=== PATIENT | female | born 1970 | race Caucasian/White ===

== ENCOUNTER 2022-09-23 21:22 | Observation (INO) | payer BC, SELFPAY ==
[2022-09-23 21:43] VITALS: BP 116/78; PULSE 65; RESP 18; TEMP 36.4; O2SAT 99; BMI 24.3
--- NOTE | 2022-09-23 22:39 | ED.ABDPAIN1 ---
HPI - Abdominal Pain General Chief Complaint: Abdominal Pain Stated Complaint: FLANK PAIN Time Seen by Provider: 09/23/22 22:39 History of Present Illness HPI narrative: Patient presents to emergency department complaining of right upper quadrant pain that started yesterday. Patient denies any trauma. She states she started having right upper quadrant pain and later she was nauseated as if she had the flu. She has vomited 4 times since this started. Denies any hematemesis, melena, hematochezia. She states she had chills denies any fever. She took Motrin today at around 7 PM but still has not helped the pain. She denies any chest pain, shortness of breath. She denies any rashes. She denies any hematuria, dysuria. Patient has not had any previous surgeries to her abdomen. Related Data Home Medications Medication Instructions Recorded Confirmed No Known Home Medications 09/23/22 09/23/22 Allergies Allergy/AdvReac Type Severity Reaction Status Date / Time bee venom protein (honey bee) Allergy Unknown Verified 09/23/22 21:46 naproxen Allergy Unknown Verified 09/23/22 21:46 Penicillins Allergy Unknown Verified 09/23/22 21:46 mushrooms Allergy Unknown Uncoded 09/23/22 21:46 Review of Systems ROS Status of ROS 10 or more systems reviewed and unremarkable except as noted in history and below [facility] Social History Smoking status: Current every day smoker Exam Narrative Exam Narrative: Nurses notes and vital signs reviewed and patient is not hypoxic. General: Nontoxic, Appears in pain, butin no apparent distress. Skin: Warm, dry, no pallor noted. No Rash Head: Normocephalic, atraumatic. Neck: Supple, non-tender. Eye: Pupils are equal, round and EOMI. No scleral icterus. Ears, Nose, Mouth, and Throat: TM clear, no posterior oropharynx erythema or nasal mucosal hypertrophy, uvula is mid-line Oral mucosa is moist Cardiovascular: Regular Rate and Rhythm without murmur, gallop or rub. Respiratory: No accessory muscle use or respiratory distress. Lungs are clear to auscultation, no wheezing, rales or rhonchi Chest Wall: no tenderness Back: No midline thoracic or lumbar vertebral tenderness. No CVA tenderness Musculoskeletal: normal ROM, no calf or popliteal tenderness, no lower extremity edema/swelling GI: Abdomen is soft, non-distended. Normal bowel sounds. moderate RUQ tenderness to palpation. No rebound, guarding, or rigidity noted. Neurological: A&O x4. No cranial nerve dysfunction observed. No truncal ataxia. Moves all extremities. Sensation intact. Psychiatric: Cooperative and interactive. Normal mood and affect. Constitutional Vital Signs, click to edit/add: Last Vital Signs Temp 97.6 F 09/23/22 21:43 Pulse 65 09/23/22 21:43 Resp 18 09/23/22 21:43 BP 116/78 09/23/22 21:43 Pulse Ox 99 09/23/22 21:43 Course Vital Signs Vital signs: Vital Signs Temperature 97.6 F 09/23/22 21:43 Pulse Rate 65 09/23/22 21:43 Respiratory Rate 18 09/23/22 21:43 Blood Pressure 116/78 09/23/22 21:43 Pulse Oximetry 99 09/23/22 21:43 Temperature 97.6 F 09/23/22 21:43 Pulse Rate 65 09/23/22 21:43 Respiratory Rate 18 09/23/22 21:43 Blood Pressure 116/78 09/23/22 21:43 Pulse Oximetry 99 09/23/22 21:43 MDM - Abdominal Pain MDM Narrative Medical decision making narrative: Shouldn't was given 4 mg of morphine, and 4 mg of Zofran IV. 1 L of normal saline. Lab studies were done and her liver function tests are elevated. CT scan abdomen and pelvis shows acute cholecystitis. The patient was started on Cipro, and Flagyl as she is ALLERGIC to penicillin. Discussed with Dr. Cochran will admit the patient to his service. He advised to order a HIDA scan in the morning. Lab Data Attestation: I reviewed the patient's lab results. Labs: Lab Results 09/23/22 Range/Units 22:38 WBC 6.3 (4.0-11.0) 10^3/uL RBC 4.11 L (4.20-5.40) 10^6/uL Hgb 12.3 (12.0-16.0) g/dL Hct 36.7 (36.0-48.0) % MCV 89.3 (81.0-99.0) fL MCH 29.9 (26.7-34.0) pg MCHC 33.5 (29.9-35.2) g/dL RDW 14.1 (11.0-15.0) % Plt Count 241 (150-450) 10^3/uL MPV 9.6 (9.5-13.5) fL Neut % (Auto) 62.7 (43.0-75.0) % Lymph % (Auto) 25.2 (20.5-60.0) % [place] % (Auto) 9.2 (1.7-12.0) % Eos % (Auto) 1.6 (0.9-7.0) % Baso % (Auto) 1.1 (0.2-2.0) % Neut # (Auto) 4.0 (1.4-6.5) 10^3/uL Lymph # (Auto) 1.6 (1.2-3.8) 10^3/uL [place] # (Auto) 0.6 (0.3-0.8) 10^3/uL Eos # (Auto) 0.1 (0.0-0.7) 10^3/uL Baso # (Auto) 0.1 (0.0-0.1) 10^3/uL Abs Immat Gran (auto) 0.01 (0.00-0.03) 10^3/uL Imm/Tot Granulo (auto) 0.2 (0.0-0.5) % Sodium 139 (136-145) mmol/L Potassium 3.3 L (3.5-5.1) mmol/L Chloride 102 (98-107) mmol/L Carbon Dioxide 27.8 (21.0-32.0) mmol/L Anion Gap 12.5 BUN 12.0 (7.0-18.0) mg/dL Creatinine 0.72 (0.55-1.02) mg/dL Est GFR ( Amer) >60 (>=60) Est GFR (Non-Af Amer) >60 (>=60) BUN/Creatinine Ratio 16.7 Glucose 118 H (74-106) mg/dL Lactate 0.7 (0.4-2.0) mmol/L Calcium 8.3 L (8.5-10.1) mg/dL Total Bilirubin 2.4 H (0.2-1.0) mg/dL AST 867 H* (15-37) U/L ALT 999 H* (14-59) U/L Alkaline Phosphatase 197 H (46-116) U/L Total Protein 7.1 (6.4-8.2) g/dL Albumin 3.8 (3.4-5.0) g/dL Globulin 3.3 g/dL Albumin/Globulin Ratio 1.2 Lipase 90.0 (73.0-393.0) U/L Discharge Plan Discharge Chief Complaint: Abdominal Pain Clinical Impression: Acute cholecystitis Patient Disposition: Admitted as Observation Time of Disposition Decision: 00:53 Condition: Good
--- NOTE | 2022-09-23 23:12 | CT_ITS ---
The [facility] [address], [place] [address] Patient Name: MINGO BARRETO MRN: [id number] date: 1970 Sex: F Assigned Patient Location: ER Current Patient Location: ER Accession/Order Number: [id number] Exam Date: 09/23/2022 00:00 Report Date: 09/24/2022 00:39 At the request of: LUCIANO GIBBS Procedure: CT abdomen pelvis w con EXAM: CT abdomen pelvis w con HISTORY: Acute abdominal pain with nausea vomiting. Right lower rib pain. COMPARISON: None available TECHNIQUE: Multiple axial views CT abdomen pelvis after administration of 100 mL of opaque 300 IV contrast. Coronal sagittal reformats. FINDINGS: Visualized lung bases and cardiac apex are unremarkable. Small hiatal hernia. Hydropic gallbladder containing multiple gallstones. Pericholecystic fluid with periportal edema. Liver, pancreas, spleen, adrenal glands, kidneys, urinary bladder, and appendix are unremarkable. A 6 mm right superior renal cortical cyst. A 1.7 cm right ovarian rim-enhancing luteal cyst. Mild pelvic free fluid, likely physiologic. Uterus and other pelvic structures are otherwise unremarkable by CT exam. Scattered colonic diverticula without pericolonic inflammatory stranding. Moderate amount of stool within the right large bowel. No evidence for small bowel obstruction, large ascites, or free air. Small fat-containing umbilical hernia without bowel protrusion. No acute bony abnormality. CT/CT abdomen pelvis w con IMPRESSION: Hydropic gallbladder containing multiple gallstones. Pericholecystic fluid with periportal edema. Constellation of these findings raise the concern for acute cholecystitis. Close clinical attention recommended. Scattered colonic diverticula without pericolonic inflammatory stranding. Small hiatal hernia. Electronically authenticated by: EDGARDO CORBIN Date: 09/24/2022 00:39
[2022-09-23 23:22] LABS: Basophils Absolute Auto 0.1 10^3/uL (0.0-0.1); Basophils Percent Auto 1.1 % (0.2-2.0); Eosinophils Absolute Auto 0.1 10^3/uL (0.0-0.7); Eosinophils Percent Auto 1.6 % (0.9-7.0); Hematocrit 36.7 % (36.0-48.0); Hemoglobin 12.3 g/dL (12.0-16.0); Immature Granulocytes Abs Auto 0.01 10^3/uL (0.00-0.03); Immature Granulocytes Pct Auto 0.2 % (0.0-0.5); Lymphocytes Absolute Auto 1.6 10^3/uL (1.2-3.8); Lymphocytes Percent Auto 25.2 % (20.5-60.0); Mean Corpuscular HGB Conc 33.5 g/dL (29.9-35.2); Mean Corpuscular Hemoglobin 29.9 pg (26.7-34.0); Mean Corpuscular Volume 89.3 fL (81.0-99.0); Mean Platelet Volume 9.6 fL (9.5-13.5); Monocytes Absolute Auto 0.6 10^3/uL (0.3-0.8); Monocytes Percent Auto 9.2 % (1.7-12.0); Neutrophils Percent Auto 62.7 % (43.0-75.0); Platelet Count 241 10^3/uL (150-450); Red Blood Count 4.11 10^6/uL (4.20-5.40); Red Cell Distribution Width 14.1 % (11.0-15.0); White Blood Count 6.3 10^3/uL (4.0-11.0)
[2022-09-23 23:30] LABS: Albumin Globulin Ratio 1.2; Albumin Level 3.8 g/dL (3.4-5.0); Alkaline Phosphatase 197 U/L (46-116); Anion Gap 12.5; BUN Creatinine Ratio 16.7; Bilirubin Total 2.4 mg/dL (0.2-1.0); Calcium 8.3 mg/dL (8.5-10.1); Carbon Dioxide 27.8 mmol/L (21.0-32.0); Chloride 102 mmol/L (98-107); Estimated GFR (African America >60 (>=60); Estimated GFR (Non-African Ame >60 (>=60); Globulin 3.3 g/dL; Glucose 118 mg/dL (74-106); Potassium 3.3 mmol/L (3.5-5.1); Sodium 139 mmol/L (136-145); Total Protein 7.1 g/dL (6.4-8.2)
[2022-09-23 23:32] LABS: Lactate/Lactic Acid 0.7 mmol/L (0.4-2.0)
[2022-09-23 23:36] LABS: Aspartate Amino Transferase 867 U/L (15-37)
[2022-09-23] MEDS: ONDANSETRON PF 4 MG/2 ML VIAL IV (23:36)
[2022-09-23 23:37] LABS: Alanine Aminotransferase 999 U/L (14-59)
[2022-09-23] MEDS: 0.9 % SODIUM CHLORIDE 1,000 ML 999 ML IV (23:37)
[2022-09-23] MEDS: MORPHINE SULFATE 2 MG/ML SYRINGE 4 MG IV (23:37)
[2022-09-24] VITALS (8 sets, daily range): BP systolic 100–125; BP diastolic 61–79; PULSE 46–63; RESP 16–20; TEMP 36.5–36.7; O2SAT 95–99; BMI 28.8
--- NOTE | 2022-09-24 | NM_ITS ---
The [address] [address] Patient Name: MINGO BARRETO MRN: [id number] date: 1970 Sex: F Assigned Patient Location: MS Current Patient Location: MS Accession/Order Number: [id number] Exam Date: 09/24/2022 10:30 Report Date: 09/24/2022 14:59 At the request of: WARREN SUH Procedure: NM hepatobiliary w pharm STUDY: Hepatobiliary Scan. HISTORY: Right upper quadrant pain, nausea, and vomiting. COMPARISONS: Right upper quadrant ultrasound and CT abdomen/pelvis 09/24/2022. RADIOPHARMACEUTICAL: 5.0 mCi of Tc-99m mebrofenin IV. ANCILLARY PHARMACEUTICAL: Ensure drinks. FINDINGS: 60 minute anterior dynamic imaging over the abdomen was performed after radiotracer injection. Normal hepatic uptake and excretion. Biliary activity was seen at 10 min, bowel activity not seen during the initial 60 minute dynamic imaging, however, bowel activity was present on the 3 hour planar imaging. Gallbladder activity at 30 min post-injection. Additional anterior dynamic imaging after ingestion of 8 ounces of Ensure over 10 minutes (the patient terminated the exam early due to nausea and vomiting). Some gallbladder contraction and ejection of radiotracer was seen, however, ejection fraction could not be calculated. MD/MD hepatobiliary w pharm IMPRESSION: 1. Radiotracer uptake within the gallbladder which rules out cystic duct obstruction. 2. Gallbladder activity and bowel activity was delayed which suggests chronic cholecystitis. Electronically authenticated by: KAYLA NAVARRO Date: 09/24/2022 14:59
[2022-09-24] MEDS: CIPROFLOXACIN IN 5 % DEXTROSE 400 MG/200 ML PIGGYBACK 200 MG IV ×2 (01:14→14:10)
[2022-09-24] MEDS: METRONIDAZOLE/SODIUM CHLORIDE 500 MG/100 ML PREMIX 100 MG IV ×4 (01:14→20:28)
[2022-09-24 01:59] LABS: Bilirubin Urine NEGATIVE (NEGATIVE); Blood Urine SMALL (NEGATIVE); Clarity Urine CLEAR (CLEAR); Color Urine YELLOW (YELLOW); Glucose Urine UA NEGATIVE (NEGATIVE); Ketones Urine 15 mg/dL (NEGATIVE); Leukocyte Esterase Urine NEGATIVE (NEGATIVE); Nitrite Urine NEGATIVE (NEGATIVE); Protein Urine NEGATIVE (NEG/TRACE); Specific Gravity Urine <=1.005 (1.005-1.025); pH Urine 6.5 (5.0-9.0)
[2022-09-24 02:00] LABS: Urine Microscopic Indicated YES
[2022-09-24 02:01] LABS: HCG Qualitative Urine* NEGATIVE (NEGATIVE)
[2022-09-24 02:06] LABS: Bacteria Urine NONE SEEN #/HPF (NONE SEEN); Cast Seen? NONE SEEN #/LPF (NONE SEEN); Crystals Seen? None Seen #/HPF (None Seen); Mucus Urine NONE SEEN (NONE SEEN); Squamous Epithelial Cell Urine RARE #/LPF (NONE/RARE); Urine Culture Indicated NO; WBC Urine 0-2 #/HPF (NONE SEEN)
--- NOTE | 2022-09-24 06:08 | US_ITS ---
The [address] [address] Patient Name: MINGO BARRETO MRN: [id number] date: 1970 Sex: F Assigned Patient Location: MS Current Patient Location: MS Accession/Order Number: [id number] Exam Date: 09/24/2022 07:25 Report Date: 09/24/2022 08:24 At the request of: WARREN SUH Procedure: US right upper quadrant EXAMINATION: US right upper quadrant HISTORY: related to hypokalemia ; right upper quadrant pain, abnormal appearance of gallbladder on CT study COMPARISON: CT abdomen pelvis 09/24/2022 TECHNIQUE: Transabdominal evaluation of the right upper quadrant. FINDINGS: LIVER: Normal size and echotexture. Color Doppler demonstrates patent hepatic veins. PORTAL VEIN: Duplex Doppler demonstrates normal hepatopetal flow pattern with flow velocity averaging 29 cm/s. GALLBLADDER: Abnormal gallbladder wall thickening, 5 mm. Stones within the fundus. No free fluid. BILIARY: Dilated common bile duct, 8 mm. PANCREASE: No visible mass, abnormal atrophy, or duct dilation. KIDNEY: No hydronephrosis. No visible mass or stones. Size: 11.2 x 4.8 x 4.4 cm US/US right upper quadrant IMPRESSION: 1. Acute cholecystitis. Electronically authenticated by: MONA ARGUELLES Date: 09/24/2022 08:24
[2022-09-24] MEDS: 0.9 % SODIUM CHLORIDE 1,000 ML 125 ML IV (06:36)
[2022-09-24 06:58] LABS: Alkaline Phosphatase 184 U/L (46-116); Bilirubin Total 2.2 mg/dL (0.2-1.0)
[2022-09-24 07:05] LABS: Anion Gap 12.7; BUN Creatinine Ratio 14.5; Calcium 7.8 mg/dL (8.5-10.1); Carbon Dioxide 21.8 mmol/L (21.0-32.0); Chloride 105 mmol/L (98-107); Estimated GFR (African America >60 (>=60); Estimated GFR (Non-African Ame >60 (>=60); Glucose 99 mg/dL (74-106); Potassium 3.5 mmol/L (3.5-5.1); Sodium 136 mmol/L (136-145)
[2022-09-24 07:09] LABS: Bilirubin Direct 1.4 mg/dL (0.0-0.2)
[2022-09-24 07:10] LABS: Alanine Aminotransferase 980 U/L (14-59); Aspartate Amino Transferase 727 U/L (15-37)
[2022-09-24 07:22] LABS: Ammonia 31 umol/L (11-32)
[2022-09-24 07:29] LABS: INR 0.97; Partial Thromboplastin Time 25.2 sec (22.3-36.2); Prothrombin Time 10.3 sec (9.0-11.6)
--- NOTE | 2022-09-24 07:42 | CM.NOTE ---
Rounds made with Dr. Soto, no needs from pt this AM. Pt awaiting to see Dr. Cochran for plan of care moving forward.
--- NOTE | 2022-09-24 10:39 | P.PN_ITS ---
Progress Note: Subjective Subjective Interval history: Patient significant abdominal pain leading up to this had acute onset of right upper quadrant pain. She did go to the rib test over the weekend. Exam Constitutional Vital Signs, click to edit/add: Last Vital Signs Temp 98 F 09/24/22 05:03 Pulse 53 L 09/24/22 05:03 Resp 20 09/24/22 05:03 BP 101/66 09/24/22 05:03 Pulse Ox 95 09/24/22 05:03 O2 Del Method Room Air 09/24/22 05:03 Documenting provider has reviewed patient's vital signs: yes Common normals: no apparent distress Chest Common normals: inspection of chest normal Respiratory Common normals: normal respiratory effort Cardio Common normals: regular rate, regular rhythm and no murmurs Progress Note: Objective Labs Labs: Short CBC 09/23/22 Range/Units 22:38 WBC 6.3 (4.0-11.0) 10^3/uL Hgb 12.3 (12.0-16.0) g/dL Hct 36.7 (36.0-48.0) % Plt Count 241 (150-450) 10^3/uL BMP 09/23/22 09/24/22 22:38 06:45 Sodium 139 136 Potassium 3.3 L 3.5 Chloride 102 105 Carbon Dioxide 27.8 21.8 BUN 12.0 8.0 Creatinine 0.72 0.55 Glucose 118 H 99 Calcium 8.3 L 7.8 L Liver Function 09/23/22 09/24/22 Range/Units 22:38 06:34 Total Bilirubin 2.4 H 2.2 H (0.2-1.0) mg/dL Direct Bilirubin 1.4 H* (0.0-0.2) mg/dL AST 867 H* 727 H* (15-37) U/L ALT 999 H* 980 H* (14-59) U/L Alkaline Phosphatase 197 H 184 H (46-116) U/L Albumin 3.8 3.0 L (3.4-5.0) g/dL Urine 09/23/22 Range/Units 01:40 Urine Color Yellow (YELLOW) Urine Clarity Clear (CLEAR) Urine pH 6.5 (5.0-9.0) Ur Specific [place] <=1.005 A (1.005-1.025) Urine Protein Negative (NEG/TRACE) mg/dL Urine Glucose (UA) Negative (NEGATIVE) mg/dL Progress Note: A&P Assessment and Plan (1) Acute cholecystitis: Plan Patient with no symptoms leading up to this, no family history of gallstones, she is not morbidly obese and only has 3 children. Acute pain resulting in acute hepatitis from acute cholecystitis-repeat LFTs are somewhat improved. Check PT PTT and ammonia for secondary effects of the hepatitis. Hepatitis ABC profile also pending. HIDA scan for later today. Plan per surgery. Hypokalemia on admission-resolved Patient denies any long-term medical illnesses.
[2022-09-24] MEDS: KETOROLAC TROMETHAMINE 30 MG/ML VIAL IVP (14:27)
[2022-09-24] MEDS: ONDANSETRON PF 4 MG/2 ML VIAL IV (14:27)
--- NOTE | 2022-09-24 15:06 | P.HP_ITS ---
H&P: HPI History of Present Illness Chief complaint: FLANK PAIN Narrative: Ana Mike is a 52-year-old female presenting to the Emergency Room for right upper quadrant pain. She states the pain was intense afternoon after she read past Friday. She endorses fevers and chills associated with this pain. She has also had nausea and vomiting. Liver enzymes are elevated, but are trending down at this time. ultrasound showed acute cholecystitis and CT scan showed gallstones with pericholecystic fluid. Review of Systems ROS Status of ROS 10 or more systems reviewed and unremarkable except as noted in history and below Constitutional Reports: chills and night sweats Gastrointestinal Reports: abdominal pain, nausea and vomiting PFSH PFSH Surgical History Family History Aunt Family history of cancer Grandmother Family history of cancer Mother Family history of diabetes mellitus Social History Within the past year, how often did you have a drink containing alcohol: 2-4 times a month Within the past year, how many standard drinks containing alcohol did you have on a typical day: 10 or more Within the past year, how often did you have six or more drinks on one occasion: less than monthly Total score: 9 Score interpretation: A score of 3 or more indicates drinking is likely to affect patient's safety. Smoking status: Current every day smoker Second hand tobacco smoke exposure: Yes Non-prescribed substance use: denies use Previous occupational history: manager hris of [email or web address] Known occupational exposures/hazards: No Highest level of school completed/degree received: some college, no degree Do you want help with school or training: No Are you now , , , , never or living with a partner: In a typical week, how many times do you talk on the telephone with family, friends, or neighbors: 3 or more times per week How often do you get together with friends or relatives: 3 or more times per week How often do you attend episcopalian or evangelical services: 1-3 times per year Do you belong to any clubs or organizations such as episcopalian groups unions, fraternal or athletic groups, or school groups: no Total score: 2 Score interpretation: A score of greater than or equal to 2 indicates the lowest level of social isolation. Little interest or pleasure in doing things: not at all Feeling down, depressed, or hopeless: not at all Feel stressed/tense/nervous/anxious/difficulty sleeping: not at all Due to disability, difficulty making decisions: No (no disability) Do you think of yourself as: straight/heterosexual Gender Identity: female Meds Home Medications and Allergies Home Medications Medication Instructions Recorded Confirmed Type No Known Home Medications 09/23/22 09/23/22 History Allergies Allergy/AdvReac Type Severity Reaction Status Date / Time bee venom protein (honey bee) Allergy Unknown Verified 09/23/22 21:46 naproxen Allergy Unknown Verified 09/23/22 21:46 Penicillins Allergy Unknown Verified 09/23/22 21:46 mushrooms Allergy Unknown Uncoded 09/23/22 21:46 Exam Narrative Exam Narrative: On exam patient is diaphoretic. She has pain to palpation in the right upper quadrant. She endorses nausea and has had several episodes of vomiting. Constitutional Vital Signs, click to edit/add: Last Vital Signs Temp 98.1 F 09/24/22 13:22 Pulse 49 L 09/24/22 13:22 Resp 20 09/24/22 05:03 BP 100/61 09/24/22 13:22 Pulse Ox 95 09/24/22 13:22 O2 Del Method Room Air 09/24/22 05:03 Common normals: healthy appearing and alert General appearance: cooperative and diaphoretic Orientation/consciousness: Yes awake HENRI Common normals: normocephalic Head and scalp: normal to inspection Face and sinus: normal facial exam GI Palpation: tender Results Labs Labs: Short CBC 09/23/22 Range/Units 22:38 WBC 6.3 (4.0-11.0) 10^3/uL Hgb 12.3 (12.0-16.0) g/dL Hct 36.7 (36.0-48.0) % Plt Count 241 (150-450) 10^3/uL BMP 09/23/22 09/24/22 22:38 06:45 Sodium 139 136 Potassium 3.3 L 3.5 Chloride 102 105 Carbon Dioxide 27.8 21.8 BUN 12.0 8.0 Creatinine 0.72 0.55 Glucose 118 H 99 Calcium 8.3 L 7.8 L Liver Function 09/23/22 09/24/22 Range/Units 22:38 06:34 Total Bilirubin 2.4 H 2.2 H (0.2-1.0) mg/dL Direct Bilirubin 1.4 H* (0.0-0.2) mg/dL AST 867 H* 727 H* (15-37) U/L ALT 999 H* 980 H* (14-59) U/L Alkaline Phosphatase 197 H 184 H (46-116) U/L Albumin 3.8 3.0 L (3.4-5.0) g/dL Urine 09/23/22 Range/Units 01:40 Urine Color Yellow (YELLOW) Urine Clarity Clear (CLEAR) Urine pH 6.5 (5.0-9.0) Ur Specific [place] <=1.005 A (1.005-1.025) Urine Protein Negative (NEG/TRACE) mg/dL Urine Glucose (UA) Negative (NEGATIVE) mg/dL Assessment and Plan Assessment and Plan (1) Acute cholecystitis: (2) Tobacco abuse: (3) Rheumatoid arthritis: Plan Robotic/laparoscopic cholecystectomy with possible cholecystectomy. Risks benefits and alternatives to surgery may include infection, bleeding, bile duct injury, blood clots legs or lungs, pneumonia, heart attack, stroke, and/or . Patient voiced understanding of all the above. She also understood that if her liver enzymes remained elevated after surgery she might need another procedure such as ERCP at a later date and another institution.
[2022-09-24] MEDS: HYDROMORPHONE HCL 1 MG/ML CARTRIDGE 0.25 MG IVP ×2 (17:26→20:28)
--- NOTE | 2022-09-24 22:49 | PM.HP ---
H&P: HPI History of Present Illness Chief complaint: FLANK PAIN PFSH PFSH Surgical History Family History Aunt Family history of cancer Grandmother Family history of cancer Mother Family history of diabetes mellitus Social History Within the past year, how often did you have a drink containing alcohol: 2-4 times a month Within the past year, how many standard drinks containing alcohol did you have on a typical day: 10 or more Within the past year, how often did you have six or more drinks on one occasion: less than monthly Total score: 9 Score interpretation: A score of 3 or more indicates drinking is likely to affect patient's safety. Smoking status: Current every day smoker Second hand tobacco smoke exposure: Yes Non-prescribed substance use: denies use Previous occupational history: restaurant district manager of [employer] Known occupational exposures/hazards: No Highest level of school completed/degree received: some college, no degree Do you want help with school or training: No Are you now , , , , never or living with a partner: In a typical week, how many times do you talk on the telephone with family, friends, or neighbors: 3 or more times per week How often do you get together with friends or relatives: 3 or more times per week How often do you attend temple or confucianism services: 1-3 times per year Do you belong to any clubs or organizations such as temple groups unions, fraternal or athletic groups, or school groups: no Total score: 2 Score interpretation: A score of greater than or equal to 2 indicates the lowest level of social isolation. Little interest or pleasure in doing things: not at all Feeling down, depressed, or hopeless: not at all Feel stressed/tense/nervous/anxious/difficulty sleeping: not at all Due to disability, difficulty making decisions: No (no disability) Do you think of yourself as: straight/heterosexual Gender Identity: female Meds Home Medications and Allergies Home Medications Medication Instructions Recorded Confirmed Type No Known Home Medications 09/23/22 09/23/22 History Allergies Allergy/AdvReac Type Severity Reaction Status Date / Time bee venom protein (honey bee) Allergy Unknown Verified 09/23/22 21:46 naproxen Allergy Unknown Verified 09/23/22 21:46 Penicillins Allergy Unknown Verified 09/23/22 21:46 mushrooms Allergy Unknown Uncoded 09/23/22 21:46 Exam Constitutional Vital Signs, click to edit/add: Last Vital Signs Temp 98.1 F 09/24/22 20:58 Pulse 63 09/24/22 20:58 Resp 18 09/24/22 20:58 BP 116/74 09/24/22 20:58 Pulse Ox 95 09/24/22 21:05 O2 Del Method Room Air 09/24/22 20:58 Results Labs Labs: Short CBC 09/23/22 Range/Units 22:38 WBC 6.3 (4.0-11.0) 10^3/uL Hgb 12.3 (12.0-16.0) g/dL Hct 36.7 (36.0-48.0) % Plt Count 241 (150-450) 10^3/uL BMP 09/23/22 09/24/22 22:38 06:45 Sodium 139 136 Potassium 3.3 L 3.5 Chloride 102 105 Carbon Dioxide 27.8 21.8 BUN 12.0 8.0 Creatinine 0.72 0.55 Glucose 118 H 99 Calcium 8.3 L 7.8 L Liver Function 09/23/22 09/24/22 Range/Units 22:38 06:34 Total Bilirubin 2.4 H 2.2 H (0.2-1.0) mg/dL Direct Bilirubin 1.4 H* (0.0-0.2) mg/dL AST 867 H* 727 H* (15-37) U/L ALT 999 H* 980 H* (14-59) U/L Alkaline Phosphatase 197 H 184 H (46-116) U/L Albumin 3.8 3.0 L (3.4-5.0) g/dL Urine 09/23/22 Range/Units 01:40 Urine Color Yellow (YELLOW) Urine Clarity Clear (CLEAR) Urine pH 6.5 (5.0-9.0) Ur Specific [place] <=1.005 A (1.005-1.025) Urine Protein Negative (NEG/TRACE) mg/dL Urine Glucose (UA) Negative (NEGATIVE) mg/dL Assessment and Plan Assessment and Plan (1) Acute cholecystitis: (2) Tobacco abuse: (3) Rheumatoid arthritis: Plan Robotic/laparoscopic cholecystectomy with possible cholecystectomy. Risks benefits and alternatives to surgery may include infection, bleeding, bile duct injury, blood clots legs or lungs, pneumonia, heart attack, stroke, and/or . Patient voiced understanding of all the above. She also understood that if her liver enzymes remained elevated after surgery she might need another procedure such as ERCP at a later date and another institution.
[2022-09-25] VITALS (15 sets, daily range): BP systolic 94–124; BP diastolic 55–73; PULSE 65–80; RESP 16–26; TEMP 36.7–37; O2SAT 91–96
[2022-09-25] MEDS: CIPROFLOXACIN IN 5 % DEXTROSE 400 MG/200 ML PIGGYBACK 150 MG IV (01:07)
[2022-09-25] MEDS: METRONIDAZOLE/SODIUM CHLORIDE 500 MG/100 ML PREMIX 100 MG IV ×2 (02:53→10:12)
[2022-09-25 05:07] LABS: HBsAg Screen Negative (Negative); HCV Ab Non Reactive (Non Reactive); Hep A Ab, IgM Negative (Negative); Hep B Core Ab, IgM Negative (Negative)
[2022-09-25] MEDS: HYDROMORPHONE HCL 1 MG/ML CARTRIDGE 0.25 MG IVP (05:07)
[2022-09-25 06:01] LABS: Albumin Level 2.9 g/dL (3.4-5.0); Alkaline Phosphatase 174 U/L (46-116); Aspartate Amino Transferase 216 U/L (15-37); Bilirubin Direct 0.4 mg/dL (0.0-0.2); Bilirubin Total 0.9 mg/dL (0.2-1.0); Total Protein 5.9 g/dL (6.4-8.2)
[2022-09-25 06:06] LABS: Alanine Aminotransferase 675 U/L (14-59)
--- NOTE | 2022-09-25 06:09 | PC.NURSE ---
Lab notified RN of critical ALT 675. This is improved from yesterday (09/24). Physician not notified due to improvement.
--- NOTE | 2022-09-25 06:32 | PC.NURSE ---
patient's jewelry placed in a container with ID sticker, locked in the med drawer.
[2022-09-25] MEDS: SCOPOLAMINE 1 EACH PATCH.TD.3 1 PATCH TD (07:22)
[2022-09-25] MEDS: INDOCYANINE GREEN 25 MG VIAL INJ (07:24)
[2022-09-25] MEDS: BUPIVACAINE HCL 0.5% PF 50 MG/10 ML VIAL 20 ML INJ (08:41)
[2022-09-25] MEDS: LACTATED RINGER'S SOLUTION 1,000 ML 50 ML IV (08:42)
--- NOTE | 2022-09-25 08:57 | PM.GSPRC ---
Date of procedure: 09/24/22 Indications for Procedure: acute cholecystitis with cholelithiasis Pre-op diagnosis: acute cholecystitis with cholelithiasis Post-op diagnosis: same Procedure: Robotic assisted cholecystectomy with IC green Findings: acute cholecystitis with cholelithiasis Anesthesia: FIDENCIO Surgeon: Del Cochran Procedure Summary: After again explaining the risks and benefits of the procedure in the preoperative care unit consent was obtained. ?The patient was taken back to the operative room and placed on the operative room table. General endotracheal anesthesia was induced and preoperative antibiotics were given. ?Appropriate time-out was performed.Right arm was?tucked at the side. ?Then the bed was positioned appropriately. ?The abdomen was prepped and draped in normal sterile fashion. A periumbilical incision was made. ?Dissection was carried down to the fascia. ?Fascia was elevated with víctor clamps and entered sharply. A 12 mm port was placed into the abdomen and the abdomen was insufflated, there were no complications with insufflation. ?The scope and camera was brought in and then 3 more ports were placed. An 8?mm port was placed in the right lateral position. Two additional?8 mm Davinci ports were placed, 8 cm to the left and one to the right of the umbilicus. ?The patient was then placed in reverse Trendelenburg position and slightly turned to the left. The [employer] robot was docked. The 4th arm was used to grasp the dome of the gallbladder superiorly. ?The peritoneal attachments were taken down with meticulous dissection laterally and medially from the gallbladder. ?At this point the infundibular gallbladder was retracted laterally and a critical view was obtained. ?With the cystic duct inferiorly cystic artery medially and the liver posteriorly. ?critical view was taken. IC green was used to identify the cystic duct common bile duct junction.Two clips were placed on the patient side and 1 on the specimen side of both the cystic duct and the cystic artery. ?These were then excised. ?The remainder of the gallbladder was taken off of the gallbladder fossa using electrocautery. The gallbladder was then removed through the umbilical port using Endo-Catch bag. ?The gallbladder fossa was visualized again to confirm no bleeding and no leak from the cystic duct. The robot was undocked from the patient. The abdomen was desufflated.? The umbilical incision fascia was closed with a [id number] 0 Vicryl. The skin was closed at all the incisions with 4 0 Monocryl. All incisions and underlying muscle was anesthetized with local anesthetic. The patient was extubated and had no immediate postoperative complications. Patient was taken to the PACU in stable condition. Devulcanizer Head: ADRIANO Hopkins Estimated blood loss (mL): 5 Specimens: gallbladder and stones Complications: No Pathology: other (gallbladder and stones) Condition: stable Disposition: PACU
--- NOTE | 2022-09-25 09:03 | P.PN_ITS ---
Progress Note: Subjective Subjective Interval history: Freddie today -stil some RUQ pain Exam Constitutional Vital Signs, click to edit/add: Last Vital Signs Temp 98.5 F 09/25/22 05:11 Pulse 69 09/25/22 05:11 Resp 18 09/25/22 05:11 BP 124/73 09/25/22 05:11 Pulse Ox 96 09/25/22 05:11 O2 Del Method Room Air 09/25/22 05:11 Documenting provider has reviewed patient's vital signs: yes Common normals: no apparent distress Chest Common normals: inspection of chest normal Respiratory Common normals: normal respiratory effort Cardio Common normals: regular rate, regular rhythm and no murmurs Progress Note: Objective Labs Labs: Liver Function 09/25/22 Range/Units 04:30 Total Bilirubin 0.9 (0.2-1.0) mg/dL Direct Bilirubin 0.4 H (0.0-0.2) mg/dL AST 216 H (15-37) U/L ALT 675 H* (14-59) U/L Alkaline Phosphatase 174 H (46-116) U/L Albumin 2.9 L (3.4-5.0) g/dL Progress Note: A&P Assessment and Plan (1) Acute cholecystitis: (2) Tobacco abuse: (3) Rheumatoid arthritis: Plan Patient with no symptoms leading up to this, no family history of gallstones, she is not morbidly obese and only has 3 children. surger today - d/c disposition after surgery Hypokalemia on admission-resolved Patient denies any long-term medical illnesses.
--- NOTE | 2022-09-25 10:04 | CM.NOTE ---
In surgery at time of Rounds.
[2022-09-26 05:05] VITALS: O2SAT 94
[2022-09-26 05:35] VITALS: BP 95/57; PULSE 55; RESP 18; TEMP 36.9; O2SAT 91
[2022-09-26 06:41] LABS: Anion Gap 12.9; BUN Creatinine Ratio 11.8; Carbon Dioxide 22.1 mmol/L (21.0-32.0); Chloride 104 mmol/L (98-107); Estimated GFR (African America >60 (>=60); Estimated GFR (Non-African Ame >60 (>=60); Glucose 111 mg/dL (74-106); Sodium 136 mmol/L (136-145)
[2022-09-26 06:45] LABS: Alanine Aminotransferase 451 U/L (14-59); Albumin Globulin Ratio 0.9; Albumin Level 2.9 g/dL (3.4-5.0); Alkaline Phosphatase 145 U/L (46-116); Aspartate Amino Transferase 67 U/L (15-37); Bilirubin Direct 0.2 mg/dL (0.0-0.2); Bilirubin Total 0.5 mg/dL (0.2-1.0); Globulin 3.1 g/dL
[2022-09-26 07:12] LABS: Basophils Percent Auto 0.4 % (0.2-2.0); Eosinophils Absolute Auto 0.1 10^3/uL (0.0-0.7); Eosinophils Percent Auto 0.8 % (0.9-7.0); Hematocrit 31.1 % (36.0-48.0); Hemoglobin 10.6 g/dL (12.0-16.0); Immature Granulocytes Abs Auto 0.02 10^3/uL (0.00-0.03); Immature Granulocytes Pct Auto 0.2 % (0.0-0.5); Lymphocytes Absolute Auto 2.7 10^3/uL (1.2-3.8); Lymphocytes Percent Auto 27.5 % (20.5-60.0); Mean Corpuscular HGB Conc 34.1 g/dL (29.9-35.2); Mean Corpuscular Hemoglobin 30.5 pg (26.7-34.0); Mean Corpuscular Volume 89.6 fL (81.0-99.0); Mean Platelet Volume 9.4 fL (9.5-13.5); Monocytes Absolute Auto 0.8 10^3/uL (0.3-0.8); Monocytes Percent Auto 7.6 % (1.7-12.0); Neutrophils Absolute Auto 6.3 10^3/uL (1.4-6.5); Neutrophils Percent Auto 63.5 % (43.0-75.0); Platelet Count 181 10^3/uL (150-450); Red Blood Count 3.47 10^6/uL (4.20-5.40); Red Cell Distribution Width 14.7 % (11.0-15.0); White Blood Count 9.9 10^3/uL (4.0-11.0)
--- NOTE | 2022-09-26 07:17 | P.DS_ITS ---
DS: Providers Provider Date of admission: 09/24/22 01:15 Primary care physician: Non-Staff PhysicianMD Attending physician on admission: Dimas Consults: 09/24/22 Consult to Hospitalist Routine Consulting Provider: Joe Soto Attending physician on discharge: Dimas Discharging clinician: Dimas Anticipated date of discharge: 09/26/22 DS: Diagnosis Discharge Diagnosis (1) Acute cholecystitis: (2) Tobacco abuse: (3) Rheumatoid arthritis: Plan discharge home DS: Summary Hospital Course Hospital Course: 52-year-old female presented to the ED with acute right upper quadrant abdominal pain was found have acute cholecystitis with cholelithiasis and elevated liver enzymes. She was placed on intravenous antibiotics and given analgesia and subsequently taken to surgery and had a robotic cholecystectomy which was uneventful. Her liver enzymes were trending down to normal prior to discharge she was tolerating diet and ambulating. Her pain was minimal post surgery. She will be discharged home with routine postop cholecystectomy instructions and asked to do no lifting greater than 5 lb for 6 weeks. Status at Discharge Cognitive/behavioral status at discharge: Good Functional status at discharge: independent ambulation Overall status at discharge: patient is back to baseline Time Spent with Patient Time attestation: Total time spent providing and/or coordinating discharge services: Exam Narrative Exam Narrative: abdomen soft nontender with incisions clean dry intact. Constitutional Vital Signs, click to edit/add: Last Vital Signs Temp 98.5 F 09/26/22 05:35 Pulse 55 L 09/26/22 05:35 Resp 18 09/26/22 05:35 BP 95/57 09/26/22 05:35 Pulse Ox 91 L 09/26/22 05:35 O2 Del Method Room Air 09/26/22 05:35 DS: Data Data Completed and Pending Labs on day of discharge: Labs from last 24 hours 09/26/22 09/26/22 07:04 06:14 WBC 9.9 RBC 3.47 L Hgb 10.6 L Hct 31.1 L MCV 89.6 MCH 30.5 MCHC 34.1 RDW 14.7 Plt Count 181 MPV 9.4 L Neut % (Auto) 63.5 Lymph % (Auto) 27.5 [place] % (Auto) 7.6 Eos % (Auto) 0.8 L Baso % (Auto) 0.4 Neut # (Auto) 6.3 Lymph # (Auto) 2.7 [place] # (Auto) 0.8 Eos # (Auto) 0.1 Baso # (Auto) 0.0 Abs Immat Gran (auto) 0.02 Imm/Tot Granulo (auto) 0.2 Sodium 136 Potassium 3.0 L Chloride 104 Carbon Dioxide 22.1 Anion Gap 12.9 BUN 8.0 Creatinine 0.68 Est GFR ( Amer) >60 Est GFR (Non-Af Amer) >60 BUN/Creatinine Ratio 11.8 Glucose 111 H Calcium 8.0 L Total Bilirubin 0.5 Direct Bilirubin 0.2 AST 67 H ALT 451 H Alkaline Phosphatase 145 H Total Protein 6.0 L Albumin 2.9 L Globulin 3.1 Albumin/Globulin Ratio 0.9 Discharge Plan Discharge Disposition: Home, Self-Care Condition: Good Discharge Medications: No Action No Known Home Medications Patient Instructions: Laparoscopic Cholecystectomy (DC) Forms: Portal Instructions Follow Up Appointments: Patient will need to make a 1 week follow up with Dr. Alaniz. New Phone #: [phone] New office location: [facility], [address] [place] [address] , [place] Follow up with Dr. Cochran on . October 01 @ 3:30pm Phone #: [phone]
[2022-09-26] MEDS: POTASSIUM CHLORIDE 10 MEQ ER TABLET 20 MEQ PO (08:12)
--- NOTE | 2022-09-26 08:17 | P.PN_ITS ---
Progress Note: Subjective Subjective Interval history: Pain from surgery as expected Exam Constitutional Vital Signs, click to edit/add: Last Vital Signs Temp 98.5 F 09/26/22 05:35 Pulse 55 L 09/26/22 05:35 Resp 18 09/26/22 05:35 BP 95/57 09/26/22 05:35 Pulse Ox 91 L 09/26/22 05:35 O2 Del Method Room Air 09/26/22 05:35 Documenting provider has reviewed patient's vital signs: yes Common normals: no apparent distress Chest Common normals: inspection of chest normal Respiratory Common normals: normal respiratory effort Cardio Common normals: regular rate, regular rhythm and no murmurs Progress Note: Objective Labs Labs: Short CBC 09/26/22 Range/Units 07:04 WBC 9.9 (4.0-11.0) 10^3/uL Hgb 10.6 L (12.0-16.0) g/dL Hct 31.1 L (36.0-48.0) % Plt Count 181 (150-450) 10^3/uL BMP 09/26/22 06:14 Sodium 136 Potassium 3.0 L Chloride 104 Carbon Dioxide 22.1 BUN 8.0 Creatinine 0.68 Glucose 111 H Calcium 8.0 L Liver Function 09/26/22 Range/Units 06:14 Total Bilirubin 0.5 (0.2-1.0) mg/dL Direct Bilirubin 0.2 (0.0-0.2) mg/dL AST 67 H (15-37) U/L ALT 451 H (14-59) U/L Alkaline Phosphatase 145 H (46-116) U/L Albumin 2.9 L (3.4-5.0) g/dL Progress Note: A&P Assessment and Plan (1) Acute cholecystitis: (2) Tobacco abuse: (3) Rheumatoid arthritis: Plan Patient with no symptoms leading up to this, no family history of gallstones, she is not morbidly obese and only has 3 children. surger today - d/c d isposition after surgery Hypokalemia on admission- sl low this am - supplemnt - can follow that as outpt Patient denies any long-term medical illnesses.
--- NOTE | 2022-09-26 08:29 | CM.NOTE ---
Rounds made with Dr. Soto, pt ok for discharge today. No discharge needs identified.
[2022-09-26 10:45] VITALS: O2SAT 94
[2022-09-26 13:25] VITALS: BP 104/68; PULSE 62; RESP 18; TEMP 36.8; O2SAT 96
--- NOTE | 2022-09-30 16:07 | CM.DCFOLLOWU ---
Person spoke with:patient How are you feeling? alright How is your pain? little pain Did you understand your discharge instructions? yes Do you have any questions about your discharge instructions? no Were you given any prescriptions at discharge? no Were you able to get your prescriptions filled? Do you understand how to take your medications as ordered? no meds Do you have any questions about your follow up appointment and do you plan to keep your follow up appointment? no questions, follow up with Dr. Cochran 10/01/22, follow up with Dr. Alaniz on 10/02/22 Is there anything else that you would like to discuss? Questions/Comments/Concerns/Other:
== END 2022-09-26 15:05 | disposition home or self-care (01) ==
LOC: ER 09-24 00:53 → MS 09-24 01:15
PROVIDERS: Family Medicine; Admitting Provider Surgery; Emergency Provider Emergency Medicine; Family Provider Family Medicine; Visit Provider Surgery
PROC: (CPT 47563; principal; 2022-09-25 07:30)
DX: K80.00 Calculus of gallbladder with acute cholecystitis without obstruction (principal); M06.9 Rheumatoid arthritis, unspecified; F17.210 Nicotine dependence, cigarettes, uncomplicated; E87.6 Hypokalemia
CPT/HCPCS: 47563; 36415; 74177; 76705; 78227; 80048; 80053; 80074; 80076; 81001; 81003; 82140; 83605; 83690; 84703; 85025; 85610; 85730; 88304; 94761; 96361; 96365; 96366; 96367; 96368; 96375; 96376; 99285; A9537; G0378; J1170; J2704; Q9967